=== PATIENT | female | born 2000 | race Caucasian/White ===

== ENCOUNTER 2025-03-14 05:43 | Emergency (ER) | payer BC ==
[~2025-03-14] VITALS: Ht 165.1 cm; Wt 86.4 kg
[2025-03-14 05:47] VITALS: TEMP 98.2
[2025-03-14 06:38] LABS: PLATELET COUNT (AUTO) 271 K/uL (150-450); RED BLOOD CELL COUNT(AUTO) 4.35 MIL/uL (4.00-5.20); RED CELL DISTRIBUTION WIDTH 12.4 % (11.5-14.5); WHITE BLOOD COUNT (AUTO) 7.1 K/uL (4.5-11.0)
[2025-03-14 06:52] VITALS: BP 120/66; PULSE 78; RESP 16; O2SAT 98
[2025-03-14 06:52] LABS: CALCIUM, TOTAL 8.2 mg/dL (8.8-10.5); CREATININE 0.75 mg/dL (0.60-1.30); GLOMERULAR FILTR. RATE CALC > 60 mL/min (>60); GLUCOSE,RANDOM 98 mg/dL (70-110); SODIUM SERUM 138 mmol/L (136-145); UREA NITROGEN, BLOOD 4 mg/dL (7-18)
[2025-03-14 06:57] LABS: TROPONIN I-HIGH SENSITIVITY 5 ng/L (<51)
[2025-03-14] MEDS: ACETAMINOPHEN 500 MG TABLET PO ONE (07:21)
[2025-03-14] MEDS ORDERED: OMEP-148 PO (07:30)
[2025-03-14] MEDS ORDERED: IBUP-1554 PO (07:30)
[2025-03-14] MEDS ORDERED: HYDR-4808 PO (07:30)
[2025-03-14] MEDS ORDERED: ACET-66 PO (07:30)
== END 2025-03-14 07:37 | disposition home or self-care (01) ==
LOC: EMS 06:13
DX: R07.89 Other chest pain (principal); F41.9 Anxiety disorder, unspecified; J45.909 Unspecified asthma, uncomplicated; Z87.442 Personal history of urinary calculi
CPT/HCPCS: 71045; 80048; 84484; 85025; 93005; 99285; 36415-L1; 36415-TC